=== PATIENT | female | born 1950 | race Caucasian/White ===

== ENCOUNTER → 2016-09-21 | Outpatient (CLI) | payer MEDICARE, OTHER | LOC: EXRD 13:00 | DX: Z13.820 Encounter for screening for osteoporosis (principal); M85.852 Other specified disorders of bone density and structure, left thigh; Z78.0 Asymptomatic menopausal state | CPT/HCPCS: 77080 ==

== ENCOUNTER 2021-05-08 17:50 | Inpatient (IN) | payer MEDICARE, OTHER ==
[~2021-05-08] VITALS: Ht 157.5 cm; Wt 113.4 kg
[~2021-05-08 17:50] MED LIST: ASPIRIN CHEWABL81 MG PO; FOLIC ACID1 MG PO; FUROSEMIDE40 MG PO; HUMULIN 70100 UNIT/2 SQ; METFORMIN HCL1000 MG PO; METHOTREXATE2.5 MG PO; MIRAPEX1 MG PO; POTASSIUM CHLO10 ME1 PO; PROAIR HFA8.5 GM INH; RANITIDINE HCL300 MG PO; SYNTHROID200 MCG PO; TRAMADOL HCL50 MG PO; VENLAFAXINE HC150 M1 PO
[2021-05-08 19:52] LABS: HEMOGLOBIN 13.2 gm/dl (12.3-15.3); RED BLOOD COUNT 4.84 M/UL (4.00-5.10); WHITE BLOOD COUNT 24.3 K/UL (4.5-11.0)
[2021-05-09 02:13] LABS: RED BLOOD COUNT 4.4 M/UL (4.00-5.10); WHITE BLOOD COUNT 35.6 K/UL (4.5-11.0)
[2021-05-09] MEDS ORDERED: POTASSIUM CHLO20 ME2 PO (10:24)
[2021-05-09] MEDS ORDERED: MACROBID 100 M100 M1 PO (10:24)
[2021-05-09] MEDS ORDERED: GEMTESA75 MG PO (10:25)
[2021-05-09] MEDS ORDERED: RAMIPRIL2.5 MG PO (10:25)
[2021-05-09] MEDS ORDERED: BREO ELLIPTA 21 EACH INH (10:25)
[2021-05-09] MEDS ORDERED: CRESTOR20 MG PO (10:26)
[2021-05-09] MEDS ORDERED: LEVOTHYROXINE25 MCG PO (10:27)
[2021-05-11 03:52] LABS: BUN/CREATININE RATIO 19 (0-10)
[2021-05-12 05:15] LABS: HEMOGLOBIN 10.4 gm/dl (12.3-15.3); RED BLOOD COUNT 3.99 M/UL (4.00-5.10)
[2021-05-12 05:47] LABS: BUN/CREATININE RATIO 14 (0-10)
[2021-05-13 05:19] LABS: BUN/CREATININE RATIO 9 (0-10)
== END 2021-05-14 18:09 | disposition home health service (06) | DRG 698 ==
LOC: ER1 17:50 → CDU 21:28 → ER1 21:28 → CDU 05-09 02:26 → PROG CARE 05-09 02:26 → MED SURG 4 05-13 13:56
PROVIDERS: Internal Medicine; Physician Assistant; ADMIT Internal Medicine
DX: T83.518A Infection and inflammatory reaction due to other urinary catheter, initial encounter (principal); A41.9 Sepsis, unspecified organism; R65.20 Severe sepsis without septic shock; G93.41 Metabolic encephalopathy; J10.08 Influenza due to other identified influenza virus with other specified pneumonia; Z20.822 Contact with and (suspected) exposure to COVID-19; J44.0 Chronic obstructive pulmonary disease with (acute) lower respiratory infection; N30.00 Acute cystitis without hematuria; E87.2 Acidosis; Z68.42 Body mass index [BMI] 45.0-49.9, adult; E11.9 Type 2 diabetes mellitus without complications; E03.9 Hypothyroidism, unspecified; I11.0 Hypertensive heart disease with heart failure; I50.9 Heart failure, unspecified; Y95 Nosocomial condition; E66.01 Morbid (severe) obesity due to excess calories; Y84.6 Urinary catheterization as the cause of abnormal reaction of the patient, or of later complication, without mention of misadventure at the time of the procedure; E78.5 Hyperlipidemia, unspecified; Z98.890 Other specified postprocedural states; Z79.899 Other long term (current) drug therapy
CPT/HCPCS: 36415; 36600; 71045; 80048; 80053; 80202; 81001; 82803; 82962; 83036; 83605; 83735; 84439; 84443; 85025; 87040; 87086; 93005; 94640; 94664; 94760; 96374; 96375; 96376; 97162; 99285; J0696; J1650; J1940; J2543; J3370; J7030; J7070; U0002